=== PATIENT | female | born 1980 | race Hispanic/Latino ===

== ENCOUNTER 2018-03-10 22:58 | Emergency (ER) | payer SELFPAY ==
[2018-03-10] MEDS ORDERED: ONDANSETRON HCL 4 MG/2 ML VIAL ONE (23:40)
[2018-03-10] MEDS ORDERED: SODIUM CHLORIDE 0.9% 1000ML 1,000 ML IV ONE (23:41)
[2018-03-10] MEDS ORDERED: ASPIRIN 325 MG TABLET ONE (23:41)
[2018-03-10] MEDS ORDERED: FAMOTIDINE/PF 20 MG/2 ML VIAL IV ONE (23:41)
[2018-03-10 23:45] LABS: EOSINOPHILS % (AUTO) 2.2 % (0.0-8.0); HEMATOCRIT 36.8 % (36-48); INR 0.98 (0.85-1.15); MEAN CORPUSCULAR HEMOGLOBIN 27.2 pg (27.0-33.0); MEAN CORPUSCULAR HGB CONC 32.2 g/dL (32.0-36.0); MEAN CORPUSCULAR VOLUME 84.4 fL (79-99); MONOCYTES % (AUTO) 5.4 % (3.0-13.0); NEUTROPHILS % (AUTO) 61.4 % (40.0-77.0); PARTIAL THROMBOPLASTIN TIME 28.7 SEC (26.3-35.5); PLATELET COUNT (AUTO) 286 K/uL (130-400); PROTHROMBIN TIME 10.3 SEC (9.6-11.6); RED BLOOD CELL COUNT(AUTO) 4.35 MIL/uL (4.00-5.50); RED CELL DISTRIBUTION WIDTH 13.6 % (11.0-15.5); WHITE BLOOD COUNT (AUTO) 9.1 K/uL (4.8-10.8)
[2018-03-10 23:52] LABS: ALBUMIN 3.7 g/dL (3.5-5.0); BILIRUBIN,TOTAL 0.2 mg/dL (0.2-1.0); CREATININE 0.8 mg/dL (0.5-1.5); POTASSIUM 3.4 mmol/L (3.5-5.1); TOTAL PROTEIN, SERUM 7.8 g/dL (6.0-8.3)
[2018-03-11] MEDS ORDERED: KETOROLAC TROMETHAMINE 30MG/ML ONE (00:39)
== END 2018-03-11 02:59 | disposition home or self-care (01) ==
LOC: EDH 22:58
DX: R07.9 Chest pain, unspecified (principal); R10.13 Epigastric pain; R11.0 Nausea; I10 Essential (primary) hypertension; Z90.49 Acquired absence of other specified parts of digestive tract
CPT/HCPCS: 36415; 71045; 80053; 81025; 82550; 83690; 83874; 84484 ×2; 85025; 85610; 85730; 93005 ×2; 96374; 96375; 99284; J1885; J2405; J3490; J7030

== ENCOUNTER 2018-04-24 09:40 | Emergency (ER) | payer OTHER ==
[2018-04-24] MEDS ORDERED: KETOROLAC TROMETHAMINE 60 MG/2 ML VIAL ONE (10:19)
== END 2018-04-24 13:46 | disposition home or self-care (01) ==
LOC: EDH 09:40
DX: S13.9XXA Sprain of joints and ligaments of unspecified parts of neck, initial encounter (principal); S80.11XA Contusion of right lower leg, initial encounter; I10 Essential (primary) hypertension; V49.59XA Passenger injured in collision with other motor vehicles in traffic accident, initial encounter; Y93.89 Activity, other specified; Y92.410 Unspecified street and highway as the place of occurrence of the external cause; Y99.8 Other external cause status
CPT/HCPCS: 71045 ×2; 72125; 73562; 73610; 96372; 99284; J1885